=== PATIENT | female | born 1960 | race Caucasian/White ===

== ENCOUNTER → 2018-01-07 10:10 | Outpatient (CLI) | payer OTHER, SELFPAY ==
[2018-01-07 12:02] LABS: Free T3, Triiodothyronine Free 3.11 pg/mL (2.77-5.27); Free T4, Direct Thyroxine 1.42 ng/dL (0.78-2.19)
[2018-01-07 12:16] LABS: Thyroid Stimulating Hormone 1.43 uIU/mL (0.47-4.68)
== END ==
PROVIDERS: Family Provider Family Medicine; PCP Internal Medicine; Visit Provider Internal Medicine
DX: E03.9 Hypothyroidism, unspecified (principal)
CPT/HCPCS: 36415; 84439; 84443; 84481

== ENCOUNTER → 2018-02-05 07:55 | Outpatient (CLI) | payer BC, SELFPAY ==
--- NOTE | 2018-02-05 | DI.MG.S_ITS ---
BILATERAL DIGITAL SCREENING MAMMOGRAM 3D/2D WITH CAD: 02/05/2018 CLINICAL: Routine screening. Comparison is made to exams dated: 05/11/2016 mammogram, 03/16/2015 mammogram, and 03/02/2014 mammogram - [facility]. There are scattered fibroglandular elements in both breasts. Current study was also evaluated with a Computer Aided Detection (CAD) system. There is a stable mass in the right breast. There also are stable masses in the left breast. Additionally, there is a benign biopsy clip in the left breast. No other significant masses, calcifications, or other findings are seen in either breast. There has been no significant interval change. IMPRESSION: There is no mammographic evidence of malignancy. A 1 year screening mammogram is recommended.(02/06/2019) This exam was interpreted at Station ID: [id number]. NOTE: For mammograms, a report in lay terms will be sent to the patient. Approximately 15% of breast malignancies will not be visualized mammographically. In the management of a palpable breast mass, a negative mammogram must not discourage biopsy of a clinically suspicious lesion. Electronically Signed By: Jovani Sun M.D. ecl/:02/06/2018 04:55:21 letter sent: Normal Exam ACR BI-RADS Category 2: Benign Finding(s) 3342F
== END ==
PROVIDERS: Family Provider Family Medicine; PCP Internal Medicine; Visit Provider Internal Medicine
DX: Z12.31 Encounter for screening mammogram for malignant neoplasm of breast (principal)
CPT/HCPCS: 77063; 77067